=== PATIENT | female | born 1955 | race Caucasian/White ===

== ENCOUNTER 2016-11-08 10:45 | Emergency (ER) | payer OTHER ==
[~2016-11-08] VITALS: Ht 162.6 cm; Wt 69.0 kg
[~2016-11-08 10:45] MED LIST: ASPI-664 PO; ATOR80TA75 PO; LOSA50TA6 PO
[2016-11-08 10:56] VITALS: Ht 162.6 cm; Wt 69.0 kg
[2016-11-08] MEDS ORDERED: HYDROmorphONE 1 MG/ML SYG IM STA (11:20)
--- NOTE | 2016-11-08 11:26 | ERD ---
ER Documentation Chief Complaint Date/Time DATE: 11/08/16 TIME: 11:25 Chief Complaint LT ARM PAIN STARTING ON WEDNESDAY. HPI 61-year-old female with a history of hypertension presenting with left upper extremity pain for 1 week. She was seen by her primary care doctor 1 week ago and prescribed steroids, methocarbamol, [place] 10, and diclofenac oral. She states that these medications have not been helping at all. She describes the pain as burning, severe, 10 out of 10, radiating from her left neck down her arm. She has no associated rash on her arm that started in the palm of her hand and has been moving up her arm. She states that she had this rash 1 week ago and showed her physician. She denies any fevers, chills, facial pain, eye pain, blurry vision. No recent trauma. ROS All systems reviewed and are negative except as per history of present illness. Medications Home Meds Active Scripts Valacyclovir HCl (Valacyclovir) 1,000 Mg Tablet, 1000 MG PO TID for 7 Days, #21 TAB Prov:SAVANNAH ARGUELLO MD 11/08/16 Oxycodone HCl/Acetaminophen (Percocet 5-325 mg Tablet) 1 Each Tablet, 1 EACH PO Q4H WHILE AWAKE Y for SEVERE PAIN LEVEL 7-10, #20 TAB Prov:SAVANNAH ARGUELLO MD 11/08/16 Reported Medications Methylprednisolone* (Medrol* DOSE PACK) 4 Mg/Dose-Pack Tab.ds.pk, 4 MG PO . DIRECTED, PACKET STARTED 11-06-16 11/08/16 Diclofenac Sodium* (Diclofenac Sodium*) 75 Mg Tablet.dr, 75 MG PO BID, #60 TAB 11/08/16 Hydrocodone/Acetaminophen ([place] 10-325 Tablet) 1 Each Tablet, 1 EACH PO EVERY 4 -6 HOURS Y for PAIN, TAB 11/08/16 Methocarbamol* (Methocarbamol*) 500 Mg Tablet, 500 MG PO QHS, TAB 11/08/16 Aspirin* (Aspirin* EC) 81 Mg Tablet.dr, 81 MG PO DAILY, TAB 04/28/16 Losartan Potassium* (Losartan Potassium*) 50 Mg Tablet, 50 MG PO DAILY, TAB 03/09/16 Discontinued Reported Medications Atorvastatin* (Atorvastatin*) 80 Mg Tablet, 80 MG PO QHS, #30 TAB 03/09/16 Allergies Allergies: Coded Allergies: Penicillins (Verified Allergy, Unknown, RASH, ITCHING, 11/08/16) PMhx/Soc History of Surgery: Yes Anesthesia Reaction: No Hx Neurological Disorder: No Hx Respiratory Disorders: No Hx Cardiac Disorders: Yes (HTN) Hx Psychiatric Problems: No Hx Miscellaneous Medical Probl: No Hx Alcohol Use: No Hx Substance Use: No Hx Tobacco Use: No FmHx Family History: No diabetes Physical Exam Vitals Vital Signs Date Time Temp Pulse Resp B/P Pulse Ox O2 Delivery O2 Flow Rate FiO2 11/08/16 10:56 99.9 69 18 191/84 99 Physical Exam Const: Nontoxic, in significant distress secondary to pain Head: Atraumatic Eyes: Normal Conjunctiva ENT: Normal External Ears, Nose and Mouth. No facial lesions present Neck: Full range of motion. No meningismus. No cervical lymphadenopathy. No midline C-spine tenderness. Resp: Clear to auscultation bilaterally Cardio: Regular rate and rhythm, no murmurs Abd: Soft, non tender, non distended. Normal bowel sounds Skin: Vesicular rash in grouped pattern present in left palm, also scattered along her complete left upper extremity. No evidence of superimposed bacterial infection. Significantly tender to light touch. Back: No midline or flank tenderness Ext: No cyanosis, or edema Neur: Awake and alert, strength and sensations intact in right upper, right lower, and left lower extremities. Left upper extremity with decreased strength likely secondary to poor effort due to pain. Psych: Normal Mood and Affect Results 24 hrs Current Medications Medications (Trade) Dose Ordered Sig/Julio Cesar Route PRN Reason Start Time Stop Time Status Last Admin Dose Admin Hydromorphone HCl (Dilaudid) 1 mg ONCE STAT IM 11/08/16 11:20 11/08/16 11:22 DC 11/08/16 11:54 Procedures/MDM EKG: Rate/Rhythm: Normal Sinus Rhythm QRS, ST, T-waves: Incomplete right bundle branch block no changes consistent w/ acute ischemia Impression: No evidence of ischemia or arrhythmia Patient is presenting with left upper extremity severe pain. She has an associated rash. Her pain is likely secondary to shingles. I have a lower suspicion for cervical radiculopathy, spinal fracture or cord compression, acute coronary syndrome, aortic or carotid dissection. Her vitals are stable. Dilaudid was given for pain. I discussed with the patient and her family her diagnosis. Given the rash is spreading, I will prescribe her Valtrex for 1 week. I will also prescribe her Percocet for better pain control. I advised she follow-up with her primary care doctor in 1-2 days. Return precautions were also discussed. Departure Diagnosis: Primary Impression: Shingles Herpes zoster complications: without complications Qualified Code: B02.9 - Herpes zoster without complication Additional Impression: Pain of left upper extremity Condition: SAVANNAH Smart MD Nov 08, 2016 11:26
[2016-11-08] MEDS ORDERED: VALA1000 PO (11:34)
[2016-11-08] MEDS ORDERED: OXYC-279 PO (11:34)
[2016-11-08] MEDS ORDERED: HYDR-902 PO (11:54)
[2016-11-08] MEDS ORDERED: METH500T8 PO (11:54)
[2016-11-08] MEDS ORDERED: DICL75TA2 PO (11:55)
[2016-11-08] MEDS ORDERED: MED4DP PO (11:56)
== END 2016-11-08 13:00 | disposition home or self-care (01) ==
LOC: E/R 10:45
DX: B02.9 Zoster without complications (principal); M79.602 Pain in left arm; I10 Essential (primary) hypertension; Z79.82 Long term (current) use of aspirin
CPT/HCPCS: 93005; 96372; Z7502